=== PATIENT | female | born 1955 | race Caucasian/White ===

== ENCOUNTER → 2018-12-25 | Outpatient (CLI) | payer BC ==
[2018-12-25 10:20] LABS: HCT 40.9 % (34.0-46.0); HGB 13.4 gm/dL (11.4-16.0); MCH 30.4 pg (25.0-35.0); MCHC 32.7 g/dL (31.0-37.0); MCV 92.9 fL (80.0-100.0); Mean Platelet Volume 7.9; Platelet Count 267 k/uL (150-450); RDW 12.9 % (11.5-15.5); WBC 5.6 k/uL (3.8-10.6)
[2018-12-25 19:25] LABS: Albumin 4.3 g/dL (3.80-4.90); Albumin/Globulin Ratio 2.15 (1.60-3.17); Anion Gap 8.1 mmol/L (4.00-12.00); Carbon Dioxide 27.9 mmol/L (21.6-31.8); LDL Cholesterol,Calculated 94.2 mg/dL (0.0-131.0); Potassium 4.1 mmol/L (3.5-5.5); Total Bilirubin 0.7 mg/dL (0.2-1.2); Total Protein 6.3 g/dL (6.2-8.2); VLDL Calculation 18.8 mg/dL (5.00-40.00)
[2018-12-25 19:32] LABS: T4, Free (Free Thyroxine) 1.1 ng/dL (0.80-1.80)
[2018-12-25 20:25] LABS: C Reactive Protein, High Sens 6.95 mg/L (0.000-3.000)
[2018-12-25 20:43] LABS: Insulin Level 6.6 mIU/mL (3.0-25.0)
[2018-12-25 20:44] LABS: Folate, Serum 10.9 ng/mL
[2018-12-25 21:14] LABS: Hemoglobin A1C 5.5 % (4.0-6.0)
== END ==
LOC: LABWHC1 09:48
PROVIDERS: ATTEND Family Medicine
DX: I10 Essential (primary) hypertension (principal); E03.9 Hypothyroidism, unspecified; E53.9 Vitamin B deficiency, unspecified; E78.2 Mixed hyperlipidemia; N92.6 Irregular menstruation, unspecified; E55.9 Vitamin D deficiency, unspecified; R73.9 Hyperglycemia, unspecified
CPT/HCPCS: 36415; 80053; 80061; 82306; 82607; 82746; 83036; 83525; 84436; 84439; 84443; 84480; 84481; 85027; 86141

== ENCOUNTER 2020-04-03 16:14 | Emergency (ER) | payer BC ==
[2020-04-03 16:20] VITALS: RESP 18
[2020-04-03] MEDS ORDERED: MORPHINE SULFATE 4 MG/ML SYRINGE IM STA (16:34)
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
--- NOTE | 2020-04-03 17:20 | XR ---
EXAMINATION TYPE: XR ribs RT w pa chest xray DATE OF EXAM: 04/03/2020 COMPARISON: None HISTORY: Pain fall TECHNIQUE: AP chest 2 views right ribs FINDINGS: No acute displaced fractures are evident. Lung serrano are clear. No pneumothorax is evident . IMPRESSION: 1. Normal AP chest and right RIBS
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
[2020-04-03 18:25] VITALS: BP 116/70; PULSE 71; TEMP 98
== END 2020-04-03 18:20 | disposition home or self-care (01) ==
LOC: EC 16:14
DX: S00.83XA Contusion of other part of head, initial encounter (principal); Z91.09 Other allergy status, other than to drugs and biological substances; Z96.652 Presence of left artificial knee joint; Z87.891 Personal history of nicotine dependence; W18.09XA Striking against other object with subsequent fall, initial encounter; Y93.55 Activity, bike riding
CPT/HCPCS: 71101; 72125; 70450; 99284; 96372; J2270

== ENCOUNTER → 2022-02-08 | Outpatient (CLI) | payer BC ==
[2022-02-08 18:26] LABS: HCT 44.5 % (37.2-46.3); HGB 13.9 g/dL (12.0-15.0); MCH 30.3 pg (27.0-32.0); MCHC 31.2 g/dL (32.0-37.0); MCV 97.2 fL (80.0-97.0); Mean Platelet Volume 12.8 fL (9.5-12.2); NRBC Per 100 WBC 0 /100 WBCS (0.0-0.0); Platelet Count 215 X 10*3/uL (140-440); RBC 4.58 X 10*6/uL (4.10-5.20); RDW 13.4 % (11.5-14.5); WBC 6.47 X 10*3/uL (4.50-10.00)
== END | disposition home or self-care (01) ==
LOC: LABWHC1 12:26
PROVIDERS: ATTEND Orthopaedic Surgery Sports Medicine
DX: M17.11 Unilateral primary osteoarthritis, right knee (principal); M25.461 Effusion, right knee
CPT/HCPCS: 36415; 85027

== ENCOUNTER → 2022-02-20 | Outpatient (CLI) | payer BC ==
[2022-02-20 20:07] LABS: Appearance,Urine Cloudy (Clear); Bilirubin,Urine Negative (Negative); Blood,Urine Negative (Negative); Color,Urine Yellow (Yellow); Ketones,Urine Negative (Negative); Nitrite,Urine Negative (Negative); PH, Urine 5.5 (5.0-8.0); Specific Gravity,Urine 1.017 (1.001-1.030); Urobilinogen,Urine 0.2 (0.2,1.0)
[2022-02-20 20:14] LABS: Bacteria,Urine None Seen /HPF (None Seen)
== END | disposition home or self-care (01) ==
LOC: LABWHC1 10:03
PROVIDERS: ATTEND Orthopaedic Surgery Sports Medicine
DX: Z48.89 Encounter for other specified surgical aftercare (principal); M23.331 Other meniscus derangements, other medial meniscus, right knee; M25.461 Effusion, right knee
CPT/HCPCS: 81001